=== PATIENT | male | born 1965 | race Caucasian/White ===

== ENCOUNTER 2024-02-22 23:59 | Outpatient (BNV) | payer OTHER, SELFPAY | END 2024-02-23 23:59 | PROVIDERS: Visit Provider Internal Medicine | DX: I20.0 Unstable angina (principal) | CPT/HCPCS: 99223 ==

== ENCOUNTER 2024-12-18 12:08 | Outpatient (RCR) | payer OTHER, SELFPAY ==
[2024-12-18 12:32] VITALS: BP 127/71; PULSE 62; RESP 18; TEMP 37.2; O2SAT 97
[2024-12-18] MEDS: methylPREDNISolone Sod Succ 1,000 MG in 0.9 % Sodium Chloride 100 ML 116 MG IV (12:50)
== END 2024-12-18 14:13 | disposition home or self-care (01) ==
LOC: HO.INF 12:08
PROVIDERS: Visit Provider Psychiatry & Neurology Neurology
DX: G35 Multiple sclerosis (principal)
CPT/HCPCS: 96365; J2919